=== PATIENT | male | born 1980 | race Caucasian/White ===

== ENCOUNTER 2024-03-10 00:08 | Observation (INO) | payer BC, SELFPAY ==
[2024-03-10] VITALS (18 sets, daily range): BP systolic 128–185; BP diastolic 82–118; PULSE 48–74; RESP 12–18; TEMP 36.6–36.9; O2SAT 95–98; BMI 28.1
--- NOTE | 2024-03-10 00:15 | ECG_ITS ---
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
--- NOTE | 2024-03-10 00:34 | CTR_ITS ---
PROCEDURE INFORMATION: Exam: CTA Head With Contrast, Arteriography Exam date and time: 03/10/2024 12:51 AM Age: 43 years old Clinical indication: Numbness and speech disturbance; Patient HX: PT was in bed and had sudden onset of RT sided numbness with aphasia, now resolved with just residual tingling in RT fingers. Last known well of 2329. ; Additional info: Right sided numbness TECHNIQUE: Imaging protocol: Computed tomographic angiography of the head with contrast. Exam focused on the arteries. 3D rendering (Not supervised by radiologist): MIP and/or 3D reconstructed images were created by the technologist. Radiation optimization: All CT scans at this facility use at least one of these dose optimization techniques: automated exposure control; mA and/or kV adjustment per patient size (includes targeted exams where dose is matched to clinical indication); or iterative reconstruction. Contrast material: OMNI 350; Contrast volume: 100 ml; Contrast route: INTRAVENOUS (IV); COMPARISON: No relevant prior studies available. RADIATION DOSE METRICS: Total DLP (mGy-cm): 1084.82 FINDINGS: ANTERIOR CIRCULATION: Right internal carotid artery: Intracranial segment is patent with no significant stenosis. No aneurysm. Right middle cerebral artery: No occlusion or significant stenosis. No aneurysm. Right anterior cerebral artery: No occlusion or significant stenosis. No aneurysm. Left internal carotid artery: Intracranial segment is patent with no significant stenosis. No aneurysm. Left middle cerebral artery: No occlusion or significant stenosis. No aneurysm. Left anterior cerebral artery: No occlusion or significant stenosis. No aneurysm. POSTERIOR CIRCULATION: Right vertebral artery: No occlusion or significant stenosis. No aneurysm. Left vertebral artery: No occlusion or significant stenosis. No aneurysm. Basilar artery: No occlusion or significant stenosis. No aneurysm. Right posterior cerebral artery: No occlusion or significant stenosis. No aneurysm. Left posterior cerebral artery: No occlusion or significant stenosis. No aneurysm. Brain: No cerebral/cerebellar infarct. No brain parenchymal or extra-axial hemorrhage. Cerebral ventricles: No ventriculomegaly. Bones/joints: Unremarkable. No acute fracture. Soft tissues: Unremarkable. PROCEDURE INFORMATION: Exam: CTA Neck With Contrast Exam date and time: 03/10/2024 12:51 AM Age: 43 years old Clinical indication: Numbness and speech disturbance; Patient HX: PT was in bed and had sudden onset of RT sided numbness with aphasia, now resolved with just residual tingling in RT fingers. Last known well of 2330. ; Additional info: Right sided numbness TECHNIQUE: Imaging protocol: Computed tomographic angiography of the neck with contrast. Exam focused on the cervical segments of the vasculature. 3D rendering (Not supervised by radiologist): MIP and/or 3D reconstructed images were created by the technologist. Radiation optimization: All CT scans at this facility use at least one of these dose optimization techniques: automated exposure control; mA and/or kV adjustment per patient size (includes targeted exams where dose is matched to clinical indication); or iterative reconstruction. Contrast material: OMNI 350; Contrast volume: 100 ml; Contrast route: INTRAVENOUS (IV); COMPARISON: No relevant prior studies available. RADIATION DOSE METRICS: Total DLP (mGy-cm): 1084.82 FINDINGS: Right common carotid artery: No stenosis. No dissection or occlusion. Right internal carotid artery: No stenosis of the extracranial segment. No dissection or occlusion. Right external carotid artery: No occlusion or stenosis of the origin. Left common carotid artery: No stenosis. No dissection or occlusion. Left internal carotid artery: No stenosis of the extracranial segment. No dissection or occlusion. Left external carotid artery: No occlusion or stenosis of the origin. Right vertebral artery: No stenosis. No dissection or occlusion. Left vertebral artery: No stenosis. No dissection or occlusion. Soft tissues: Normal. No significant soft tissue swelling. Bones/joints: No acute fracture. CT/CT angio headneck* [id number] IMPRESSION: 1. No acute infarct or hemorrhage. 2. No large vessel occlusion or stenosis. IMPRESSION: No vascular stenosis, occlusion or dissection. REFERENCES: NASCET CRITERIA. The degree of stenosis in the cervical segment of the internal carotid artery is based on NASCET criteria. Normal is no stenosis. Mild is less than 50% stenosis. Moderate is 50-69% stenosis. Severe is 70% to 99% stenosis. Total occlusion is no detectable patent lumen.
[2024-03-10 00:44] LABS: Basophils % 0.6 %; Eosinophils # 0.2 10^3/uL (0.0-0.8); Eosinophils % 3.9 %; Hematocrit 42.9 % (37-53); Lymphocytes # 2.1 10^3/uL (0.8-4.8); Lymphocytes % 40.3 %; Mean Corpuscular Hemoglobin 29.6 pg (27-33); Mean Corpuscular Volume 86.8 fl (82-101); Mean Platelet Volume 10.6 fL (7.4-10.4); Monocytes # 0.4 10^3/uL (0.2-0.9); Monocytes % 8.5 %; Neutrophils # 2.42 10^3/uL (1.8-7.7); Neutrophils % 46.5 %; Nucleated Red Blood Cells % 0 %; Platelet Count 238 10^3/cmm (157-399); Red Blood Count 4.94 10^6/uL (3.85-5.65); Red Cell Distribution Width 11.9 % (12.1-15.1); White Blood Count 5.19 10^3/uL (3.29-11.43)
[2024-03-10 01:02] LABS: Charge for UA Resulting for Rev
[2024-03-10] MEDS: iohexol 350 mg/mL 500 mL Btl (per mL) IV (01:02)
[2024-03-10 01:05] LABS: Bilirubin Urine Negative (Negative); Blood Urine Negative (Negative); Glucose Urine UA Negative (Normal); Ketones Urine Negative (Negative); Leukocyte Esterase Urine Negative (Negative); Nitrate Urine Negative (Negative); Protein Urine Negative (Negative); Specific Gravity, Urine 1.002 (1.005-1.030); Urine Appearance Clear (CLEAR); Urine Color Yellow (Yellow); Urobilinogen Urine 0.2 mg/dL (Negative)
[2024-03-10 01:07] LABS: INR 0.93 (0.8-1.2); Partial Thromboplastin Time 31.1 SECONDS (23.9-36.7)
[2024-03-10 01:10] LABS: Bacteria Urine None Seen /hpf; Hyaline Casts Urine 0-4 /lpf; RBC Urine 0-2 /hpf (0-2); Squamous Epithelial Cell Urine 0-5 /hpf (0-5); WBC Urine 0-5 /hpf (0-5)
[2024-03-10 01:12] LABS: Amphetamines Screen Urine Negative (Negative); Barbiturates Screen Urine Negative (Negative); Benzodiazepines Screen Urine Negative (Negative); Cocaine Screen Urine Negative (Negative); Opiate Screen Urine Negative (Negative); PCP Screen Urine Negative (Negative); THC Screen Urine Negative (Negative)
[2024-03-10] MEDS: labetalol 5 mg/mL SDV 20mL 10 MG IVP (01:12)
[2024-03-10 01:15] LABS: Alanine Aminotransferase 22 U/L (0-41); Albumin Level 4.4 g/dL (3.5-5.2); Alkaline Phosphatase 60 U/L (40-130); Anion Gap 14.7 (5-19); Aspartate Amino Transferase 19 U/L (0-40); Blood Urea Nitrogen 17 mg/dL (6-20); Carbon Dioxide 26 mmol/L (22-29); Chloride 106 mmol/L (98-107); Creatinine Clr Calc Pharmacy 138.4147; Globulin 2.8 g/dL (1.3-4.6); Glomerular Filtration Rate 92.5 mL/min (90-130); Glucose 123 mg/dL (65-115); Osmolality Calculated 299 mOsm/kg (285-295); Potassium 3.7 mmol/L (3.5-5.1); Sodium 143 mmol/L (136-145); Total Bilirubin 0.2 mg/dL (0.15-1.2); Total Protein 7.2 g/dL (6.6-8.7)
[2024-03-10 01:16] LABS: Alcohol Level < 10 mg/dL (0-10)
--- NOTE | 2024-03-10 01:34 | ED_ITS ---
HPI - Neuro Symptoms/Deficit 2 General: Chief Complaint: Neuro Symptoms/Deficit Stated Complaint: Right side Numbness Time Seen by Provider: 03/10/24 00:33 History of Present Illness: 43-year-old male patient with no prior s ignificant medical history. Presents with a right upper extremity paresthesia. Evidently, around 11 PM, he and his are in bed. He sat up suddenly, and tried to speak. His says the speech was garbled. He was evidently trying to say that he felt funny. He had numbness he says to the right side of his body from his forehead to his right foot. No headache, no vision changes. Within a minute, symptoms were improved, save a small area of [id number] type sensation to his right thumb and index finger. He is not weak. Still no change in vision, no dizziness, no dysarthria or aphasia. No prior history of seizure. No prior history of migraine headache. Related Data Allergies Allergy/AdvReac Type Severity Reaction Status Date / Time No Known Allergies Allergy Verified 03/10/24 00:34 NIH stroke score 2 NIHSS: Level Of Consciousness - 1a: 0 Level Of Consciousness Questions - 1b: Both Correct Level Of Consciousness Commands - 1c: Both Correct Best Gaze - 2: Normal Visual Kendall - 3: No Visual Loss Facial Palsy - 4: N ormal Motor Arm Right - 5: No Drift Motor Arm Left - 5: No Drift Motor Leg Right - 6: No Drift Motor Leg Left - 6: No Drift Limb Ataxia - 7: A bsent Sensory - 8: Mild To Moderate Loss Best Language - 9: No Aphasia Dysarthia - 10: Normal Extinction And Inattention - 11: 0 Score: Total Score: 1 Physical Exam 2 Const: GENERAL APPEARANCE: cooperative and anxious; not ill appearing and not frail appearing HENMT: COMMON NORMALS: normocephalic, atraumatic and Normal external nose present HEAD & SCALP: normocephalic and atraumatic FACE & SINUS: normal facial exam and face symmetric NOSE: Normal external nose present Eye: COMMON NORMALS: Equal, round and reactive pupils present and EOMs intact bilaterally PUPIL: Yes Equal, round and reactive pupils present Neck/C-Spine: GENERAL: Yes trachea midline Chest: CHEST: Yes Symmetrical chest wall rise Resp: COMMON NORMALS: normal respiratory effort, No retractions, No use of accessory muscles and clear to auscultation bilaterally AUSCULTATION: clear to auscultation bilaterally Cardio: COMMON NORMALS: regular rate and regular rhythm RATE: regular rate RHYTHM: regular rhythm GI: COMMON NORMALS: Normal to inspection, nondistended, normoactive bowel sounds present Extremity: COMMON NORMALS: no pedal edema Neuro: IZABELLA COMA SCALE: document GCS findings Izabella coma scale eye opening: Spontaneous Izabella coma scale verbal response: Orientated [place] coma scale motor response: Obey commands Izabella coma scale total score: 15 S ENSORY EXAM: Yes extremities (intact) Psych: COMMON NORMALS: speech normal SPEECH: Yes normal speech Skin: COMMON NORMALS: no rashes or lesions noted GENERAL SKIN EXAM: no rashes or lesions noted Course 2 Vital Signs: Vital signs: Vital Signs Temperature 98.5 F 03/10/24 00:28 Pulse Rate 64 03/10/24 02:58 Respiratory Rate 18 03/10/24 02:58 Blood Pressure 138/93 03/10/24 02:58 Pulse Oximetry 96 03/10/24 02:58 Oxygen Delivery Me thod Room Air 03/10/24 00:28 MDM - Neuro Symptoms/Deficit Medical Decision Making Nearly fully resolved neurological symptoms. Patient only has slight paresthesia to the first and second digit on the right upper extremity. Other sensation is intact. stroke scale is a 1. Negative urine drug screen. Negative alcohol. Laboratories essentially normal. Head CT is negative. CT angio of the head and neck is pending. CT angio of the head and neck is read as normal. Patient still has some paresthesias to the right upper extremity. Patient was quite hypertensive on presentation. 210s over 1 teens. He was given 1 dose of 10 mg of labetalol, with some improvement. Blood pressure has improved significantly over time. Differential is hypertensive urgency versus TIA versus small stroke versus partial seizure. With a score of 1, thrombolytics were not an option. He is not a candidate for thrombectomy given his clean CTA. He will be observed. Will continue workup including echocardiogram. Hospitalist is seeing the patient Lab Data 03/10/24 00:40 03/10/24 00:40 Radiology Impressions Head/Neck CTA 03/10/24 00:34 IMPRESSION: 1. No acute infarct or hemorrhage. 2. No large vessel occlusion or stenosis. IMPRESSION: No vascular stenosis, occlusion or dissection. REFERENCES: NASCET CRITERIA. The degree of stenosis in the cervical segment of the internal carotid artery is based on NASCET criteria. Normal is no stenosis. Mild is less than 50% stenosis. Moderate is 50-69% stenosis. Severe is 70% to 99% stenosis. Total occlusion is no detectable patent lumen. Laboratory Results WBC 5.19 10^3/uL (3.29-11.43) 03/10/24 00:40 RBC 4.94 10^6/uL (3.85-5.65) 03/10/24 00:40 Hgb 14.60 g/dL (11.27-16.99) 03/10/24 00:40 Hct 42.9 % (37-53) 03/10/24 00:40 MCV 86.8 fl (82-101) 03/10/24 00:40 MCH 29.6 pg (27-33) 03/10/24 00:40 MCHC 34.0 g/dL (30-55) 03/10/24 00:40 RDW 11.9 % (12.1-15.1) L 03/10/24 00:40 Plt Count 238 10^3/cmm (157-399) 03/10/24 00:40 MPV 10.6 fL (7.4-10.4) H 03/10/24 00:40 Neut % (Auto) 46.5 % 03/10/24 00:40 Lymph % (Auto) 40.3 % 03/10/24 00:40 Cannon % (Auto) 8.5 % 03/10/24 00:40 Eos % (Auto) 3.9 % 03/10/24 00:40 Baso % (Auto) 0.6 % 03/10/24 00:40 Neut # (Auto) 2.42 10^3/uL (1.8-7.7) 03/10/24 00:40 Lymph # (Auto) 2.1 10^3/uL (0.8-4.8) 03/10/24 00:40 Cannon # (Auto) 0.4 10^3/uL (0.2-0.9) 03/10/24 00:40 Eos # (Auto) 0.2 10^3/uL (0.0-0.8) 03/10/24 00:40 Baso # (Auto) 0.0 10^3/uL (0.0-0.1) 03/10/24 00:40 Nucleated RBC % (auto) 0 % 03/10/24 00:40 Nucleated RBCs # 0.0 /100WBC 03/10/24 00:40 PT 12.70 SECONDS (12.1-14.9) 03/10/24 00:40 INR 0.93 (0.8-1.2) 03/10/24 00:40 APTT 31.1 SECONDS (23.9-36.7) 03/10/24 00:40 Sodium 143 mmol/L (136-145) 03/10/24 00:40 Potassium 3.7 mmol/L (3.5-5.1) 03/10/24 00:40 Chloride 106 mmol/L (98-107) 03/10/24 00:40 Carbon Dioxide 26 mmol/L (22-29) 03/10/24 00:40 Anion Gap 14.7 (5-19) 03/10/24 00:40 BUN 17 mg/dL (6-20) 03/10/24 00:40 Creatinine 0.9 mg/dL (0.7-1.2) 03/10/24 00:40 GFR Calculation 92.5 mL/min (90-130) 03/10/24 00:40 Glucose 123 mg/dL (65-115) H 03/10/24 00:40 Calculated Osmolality 299 mOsm/kg (285-295) H 03/10/24 00:40 Calcium 9.0 mg/dL (8.5-10.5) 03/10/24 00:40 Total Bilirubin 0.2 mg/dL (0.15-1.2) 03/10/24 00:40 AST 19 U/L (0-40) 03/10/24 00:40 ALT 22 U/L (0-41) 03/10/24 00:40 Alkaline Phosphatase 60 U/L (40-130) 03/10/24 00:40 Total Protein 7.2 g/dL (6.6-8.7) 03/10/24 00:40 Albumin 4.4 g/dL (3.5-5.2) 03/10/24 00:40 Globulin 2.8 g/dL (1.3-4.6) 03/10/24 00:40 Urine Color Yellow (Yellow) 03/10/24 00:42 Urine Appearance Clear (CLEAR) 03/10/24 00:42 Urine pH 6.0 (5-7) 03/10/24 00:42 Ur Specific [place] 1.002 (1.005-1.030) L 03/10/24 00:42 Urine Protein Negative (Negative) 03/10/24 00:42 Urine Glucose (UA) Negative (Normal) 03/10/24 00:42 Urine Ketones Negative (Negative) 03/10/24 00:42 Urine Blood Negative (Negative) 03/10/24 00:42 Urine Nitrate Negative (Negative) 03/10/24 00:42 Urine Bilirubin Negative (Negative) 03/10/24 00:42 Urine Urobilinogen 0.2 mg/dL (Negative) 03/10/24 00:42 Ur Leukocyte Esterase Negative (Negative) 03/10/24 00:42 Urine RBC 0-2 /hpf (0-2) 03/10/24 00:42 Urine WBC 0-5 /hpf (0-5) 03/10/24 00:42 Ur Squamous Epith Cells 0-5 /hpf (0-5) 03/10/24 00:42 Amorphous Sediment Not Reportable 03/10/24 00:42 Urine Bacteria None seen /hpf (NONE) 03/10/24 00:42 Hyaline Casts 0-4 /lpf H 03/10/24 00:42 Urine Opiates Screen Negative ng/mL (Negative) 03/10/24 00:42 Ur Barbiturates Screen Negative ng/mL (Negative) 03/10/24 00:42 Ur Phencyclidine Scrn Negative ng/mL (Negative) 03/10/24 00:42 Ur Amphetamines Screen Negative ng/mL (Negative) 03/10/24 00:42 U Benzodiazepines Scrn Negative ng/mL (Negative) 03/10/24 00:42 Urine Cocaine Screen Negative ng/mL (Negative) 03/10/24 00:42 U Marijuana (THC) Screen Negative ng/mL (Negative) 03/10/24 00:42 Ethyl Alcohol < 10 mg/dL (0-10) 03/10/24 00:40 All radiology interpretation(s) finalized by discharge Discharge Plan Discharge Patient Disposition: Placed in Observation Clinical Impression: Transient cerebral ischemia Condition: Stable Coding Level of Care Code ED Universal Grinder Operator for Salina Quiles
--- NOTE | 2024-03-10 03:09 | USCV_ITS ---
Domo Champagne Age: 43 Gender: M : 1980 Exam Date: 03/10/2024 14:07 Ordering Phys: Mich Del Valel MD Technologist: Hossein Jaquez [place] [facility] [place]: tia BP: 150 / 99 HR: Rhythm: Sinus Technical Quality: Adequate MEASUREMENTS (Male / Female) Normal Values 2D ECHO LV Diastolic Diameter PLAX 4.3 cm 4.2 - 5.9 / 3.9 - 5.3 cm IVS Diastolic Thickness 1.3 cm 0.6 - 1.0 / 0.6 - 0.9 cm IVS Systolic Thickness 1.7 cm LVPW Diastolic Thickness 1.8 cm 0.6 - 1.0 / 0.6 - 0.9 cm LVPW Systolic Thickness 2.7 cm LVOT Diameter 2.1 cm LV Ejection Fraction 2D Teich 57.7 % LV Ejection Fraction MOD 4C 58.3 % LV Ejection Fraction MOD 2C 66.2 % LV Ejection Fraction 2C AL 67.0 % LA Diameter 3.2 cm RA Systolic Volume 4C AL 32.8 ml RA Systolic Volume 4C MOD 32.0 ml LA Sys Volume AL 44.7 cm cubed LA Sys Volume Index AL 19.1 cm cubed/m squared Aorta at Sinotubular Diameter 2.3 cm IVC Diameter 2.0 cm M-MODE LA Ao Ratio MM 1.0 AV Cusp Separation MM 2.1 cm FINDINGS Left Ventricle Normal left ventricular size, systolic function and wall thickness, with no regional wall motion abnormalities. Left ventricle ejection fraction is 60%. Normal diastolic filling pattern. Right Ventricle The right ventricle is normal in size and function. Right Atrium The right atrium is normal in size. There appeared to be no PFO as agitated saline did not show interatrial shunt Left Atrium The left atrium is normal in size. Mitral Valve Structurally normal mitral valve without significant stenosis or prolapse. There is no mitral regurgitation. Aortic Valve Structurally normal aortic valve without significant sclerosis or stenosis. There is no aortic regurgitation. Tricuspid Valve Structurally normal tricuspid valve without significant stenosis or regurgitation. Pulmonary artery systolic pressure is normal. Pulmonic Valve Structurally normal pulmonic valve without significant stenosis. There is no pulmonic regurgitation. Pericardium Normal pericardium without effusion. Aorta Normal ascending aorta dimension. IVC The inferior vena cava appears normal. CONCLUSIONS 1-Normal left ventricular size, systolic function and wall thickness, with no regional wall motion abnormalities. Left ventricle ejection fraction is 60%. Normal diastolic filling pattern. 2-The right atrium is normal in size. There appeared to be no PFO as agitated saline did not show interatrial shunt 3-There is no pericardial effusion. 4-No significant valve abnormalities. 5-Right atrial pressure is around 5 mm of mercury. Alfreda Morales MD (Electronically Signed) Final Date: 10 March 2024 17:24 S
--- NOTE | 2024-03-10 03:12 | ECG_ITS ---
[facility] Test Date: 2024-03-10 Pat Name: Domo Champagne Department: Room: Gender: Male Case Investigator: : 1980 Requested By: Mich Del Valle Order Number: [id number] Nick MD: JACOB GAITAN Measurements Intervals [place] Rate: 57 P: 55 [place]: 177 QRS: 29 QRSD: 90 T: 44 QT: 404 QTc: 395 Interpretive Statements SINUS BRADYCARDIA ST ELEVATION, PROBABLY EARLY REPOLARIZATION [ST ELEVATION WITH NORMALLY INFLECTED T-WAVE] Compared to ECG 03/10/2024 00:19:53 ST (T wave) deviation now present Early repolarization now present Sinus rhythm no longer present Ventricular premature complex(es) no longer present Electronically Signed On 03-10-2024 18:50:48 CDT by JACOB GAITAN [id number]
--- NOTE | 2024-03-10 03:12 | P.HP_ITS ---
Providers/Chief Complaint 2 Chief Complaint: Right side Numbness History of Present Illness Domo Champagne is a 43 year old male with no significant past medical history, who presents [facility] due to right sided numbness, right-leg weakness, slurring over his words,. Patient tells me that at about 11 pM, he was playing on his phone, he was in bed with his , when he suddenly noticed that he had numbness on the right side of his body, from his right side of his forehead down to his right foot, he did not remember if he had right hand weakness but does report right leg weakness, reported weakness in his right leg, also had garbled speech, symptoms lasted about 30 seconds, and transiently resolved, he actually was brought into the emergency room by his , he walked into the emergency room, denies any lightheadedness, no dizziness, no unsteadiness, no current focal weakness, no facial droop, no slurring of his words, he did report to the ER provider they had some focal paresthesias around his right thumb and index finger. His NIH stroke scale was 1 calculated by ER provider, for me his NIH stroke scale is 0. Denies any facial droop, no slurring of his words, no visual deficits, he was able to walk in to the emergency room, no unsteadiness, of his gait, [id number]-[id number] is normal, no focal weakness, no focal paresthesias, no dysarthria, no word finding difficulty no migraines, no seizures. The patient does tell me that he has been dealing with elevated blood pressure and was supposed to see his primary care provider about possibly starting blood pressure medications, no history of atrial fibrillation Review of Systems 2 Const: Denies: fatigue or malaise Card: Denies: chest pain Resp: Denies: dyspnea GI: Denies: abdominal pain Neuro: Denies: headache(s), dizziness, confusion, difficulty communicating thoughts or seizure-like activity Psych: Denies: anxiety Medications/Allergies Allergies Allergy/AdvReac Type Severity Reaction Status Date / Time No Known Allergies Allergy Verified 03/10/24 00:34 PFSH Acute 2 PFSH: Medical History (Updated 03/10/24 @ 03:17 by Mich Del Valle MD) No pertinent past medical history Surgical History (Updated 03/10/24 @ 03:17 by Mich Del Valle MD) No pertinent past surgical history Family History Mother Hypertension Social History (Updated 03/10/24 @ 03:18 by Mich Del Valle MD) Smoking and tobacco/nicotine status: never used tobacco/nicotine Alcohol intake: never Substance/Drug Use: never Vitals/I&O/Wt Last Vital Signs Temp 98.5 F 03/10/24 00:28 Pulse 64 03/10/24 02:58 Resp 18 03/10/24 02:58 BP 138/93 03/10/24 02:58 Pulse Ox 96 03/10/24 02:58 O2 Del Method Room Air 03/10/24 00:28 Weight last 48 hrs Weight 102.058 kg Physical Exam 2 Const: COMMON NORMALS: no acute distress and patient oriented x3 HENMT: COMMON NORMALS: normocephalic HEAD & SCALP: normocephalic Eye: COMMON NORMALS: Equal, round and reactive pupils present and EOMs intact bilaterally Neck/C-Spine: COMMON NORMALS: no JVD Lymph: LYMPHATIC: no lymphadenopathy noted Resp: COMMON NORMALS: normal respiratory effort, No retractions, No use of accessory muscles and clear to auscultation bilaterally AUSCULTATION: clear to auscultation bilaterally Cardio: COMMON NORMALS: no JVD, regular rate, regular rhythm, S1 normal heart sound present and S2 normal heart sound present RATE: regular rate RHYTHM: regular rhythm HEART SOUNDS: S1 normal heart sound present and S2 normal heart sound present GI: COMMON NORMALS: Normal to inspection, nondistended, normoactive bowel sounds present, Soft to palpation and non-tender PALPATION: Yes No hepatosplenomegaly present Extremity: COMMON NORMALS: no calf tenderness and no pedal edema Neuro: COMMON NORMALS: patient oriented x3, CN's II-XII intact bilaterally, moves all extremities, no focal motor deficits and no sensory deficits noted Psych: COMMON NORMALS: mental status grossly normal Data 03/10/24 00:40 03/10/24 00:40 A&P Assessment and plan (1) Transient cerebral ischemia: Plan TIA -Currently alert oriented x 3, following all commands, no focal logic deficits, no slurring of his words, no word finding difficulty, no visual deficits, [id number]-[id number]-[id number] normal bilaterally, was able to walk in to the emergency room -CT head within normal limits, CT head and neck no acute findings -Was not deemed a tPA candidate by ER provider, NIH stroke scale 1 Plan -Aspirin -Statin -IV fluids -Neurochecks -NIH stroke scale -Does have undiagnosed hypertension, blood pressure on admission was 185/108, was given labetalol, currently blood pressure is 150/110 ? Start Norvasc 10 mg daily ? Telemetry monitoring ? Serial EKGs, serial troponins, telemetry monitoring ? Echocardiogram bubble study ? Will have patient follow-up with neurology as outpatient ? Full code ? Lovenox for DVT prophylaxis Attestations 2 Medical Necessity Statement*: Patient requires hospitalization, outpatient with observation, for TIA Diagnoses Transient cerebral ischemia G45.9
[2024-03-10] MEDS: sodium chloride 0.9% 1,000 ML 75 ML IV (03:55)
[2024-03-10] MEDS: aspirin 81 mg EC Tablet PO (04:00)
[2024-03-10] MEDS: atorvastatin 40 mg Tablet PO ×2 (04:00→20:37)
[2024-03-10] MEDS: amlodipine 10 mg Tablet PO (04:00)
[2024-03-10 04:01] LABS: Estmated Average Glucose 100; Hemoglobin A1C 5.1 % (4.0-6.0); Troponin(5th) Baseline < 6 ng/L (0-15)
[2024-03-10] MEDS: pantoprazole 40 mg SDV IVP (04:01)
[2024-03-10] MEDS: enoxaparin 40 mg/0.4 mL Syringe SUBCUT (04:02)
[2024-03-10 04:08] LABS: Chol HDL Ratio 4.15 mg/dL (1.0-5.00); Cholesterol 199 mg/dL (0-200); HDL Cholesterol 48 mg/dL (60-100); LDL Cholesterol Calculated 108 mg/dL (50-129); LDL HDL Ratio 2.25 RATIO (0.00-3.22); NT Pro B Type Natriuretic Pept < 36 pg/mL (0-125); Thyroid Stimulating Hormone 4.75 uIU/mL (0.27-4.20); Triglycerides 215 mg/dL (0-150)
--- NOTE | 2024-03-10 05:12 | ECG_ITS ---
[facility] Test Date: 2024-03-10 Pat Name: Domo Champagne Department: Room: Gender: Male Health Service Coordinator: : 1980 Requested By: Mich Del Valle Order Number: [id number] Reading MD: JACOB GAITAN Measurements Intervals [place] Rate: 51 P: 48 DE: 177 QRS: 38 QRSD: 89 T: 41 QT: 427 QTc: 395 Interpretive Statements SINUS BRADYCARDIA EARLY REPOLARIZATION [ST ELEVATION WITH NORMALLY INFLECTED T-WAVE] Compared to ECG 03/10/2024 03:40:09 ST (T wave) deviation no longer present Electronically Signed On 03-10-2024 18:56:54 CDT by JACOB GAITAN [id number]
[2024-03-10 07:06] LABS: Troponin 5 6HR Delta 0.00001 ng/L (0-12)
--- NOTE | 2024-03-10 09:12 | ECG_ITS ---
[facility] Test Date: 2024-03-10 Pat Name: Domo Champagne Department: Room: 253 Gender: Male Shop Supervisor: : 1980 Requested By: Mich Del Valle Order Number: [id number] Reading MD: JACOB GAITAN Measurements Intervals [place] Rate: 62 P: 55 OR: 181 QRS: 42 QRSD: 89 T: 44 QT: 400 QTc: 408 Interpretive Statements SINUS RHYTHM ST ELEVATION, PROBABLY EARLY REPOLARIZATION [ST ELEVATION WITH NORMALLY INFLECTED T-WAVE] Compared to ECG 03/10/2024 05:18:33 ST (T wave) deviation now present Sinus bradycardia no longer present Electronically Signed On 03-10-2024 18:55:45 CDT by JACOB GAITAN [id number]
[2024-03-10 10:39] LABS: Free T4 Free Thyroxine 1.17 ng/dL (0.82-1.77); T3 Free 4.4 PG/ML (2.0-4.4)
[2024-03-10 10:55] LABS: Iron 47 ug/dL (59-158); Percent Saturation 18.3 % (20-50); Total Iron Binding Capacity 256 mcg/dl; Unsaturated Iron Binding 209 ug/dL (112-347)
--- NOTE | 2024-03-10 11:01 | P.MISC_ITS ---
Miscellaneous Note Purpose of Documentation: Cross coverage Note: Admitted overnight. H&P and labs appreciated. . On examination patient and comfortabl y in bed. Denies any further weakness of arms or legs. Denies any further numbness on the right side of the body. Appreciate CT head and neck. PT/OT evaluation. Goal blood pressure less than 140/90 MAG. Continue with aspirin, statin, amlodipine. Uptitrate as for goal blood pressure. Awaiting echocardiogram.
[2024-03-10 11:11] LABS: Vitamin B12 398 pg/mL (232-1245)
[2024-03-10] MEDS: acetaminophen 325 mg Tablet 650 MG PO (16:42)
[2024-03-11] MEDS: pantoprazole 40 mg SDV IVP (03:45)
[2024-03-11] MEDS: amlodipine 10 mg Tablet PO (03:45)
[2024-03-11] MEDS: enoxaparin 40 mg/0.4 mL Syringe SUBCUT (03:45)
[2024-03-11 04:00] VITALS: BP 127/88; PULSE 59; RESP 17; TEMP 36.9; O2SAT 96
[2024-03-11 04:35] LABS: Basophils % 0.6 %; Eosinophils # 0.2 10^3/uL (0.0-0.8); Eosinophils % 3.1 %; Hematocrit 43.1 % (37-53); Lymphocytes # 1.8 10^3/uL (0.8-4.8); Lymphocytes % 33.6 %; Mean Corpuscular HGB Conc 34.3 g/dL (30-55); Mean Corpuscular Hemoglobin 30.1 pg (27-33); Mean Corpuscular Volume 87.6 fl (82-101); Mean Platelet Volume 10.9 fL (7.4-10.4); Monocytes # 0.4 10^3/uL (0.2-0.9); Monocytes % 7.7 %; Neutrophils # 2.86 10^3/uL (1.8-7.7); Neutrophils % 54.8 %; Nucleated Red Blood Cells % 0 %; Platelet Count 224 10^3/cmm (157-399); Red Blood Count 4.92 10^6/uL (3.85-5.65); Red Cell Distribution Width 12.1 % (12.1-15.1); White Blood Count 5.21 10^3/uL (3.29-11.43)
[2024-03-11 04:58] LABS: Alanine Aminotransferase 20 U/L (0-41); Albumin Level 4.3 g/dL (3.5-5.2); Alkaline Phosphatase 52 U/L (40-130); Anion Gap 14.7 (5-19); Aspartate Amino Transferase 15 U/L (0-40); Blood Urea Nitrogen 15 mg/dL (6-20); Carbon Dioxide 26 mmol/L (22-29); Chloride 107 mmol/L (98-107); Creatinine Clr Calc Pharmacy 151.0554; Globulin 2.4 g/dL (1.3-4.6); Glucose 100 mg/dL (65-115); Osmolality Calculated 299 mOsm/kg (285-295); Potassium 3.7 mmol/L (3.5-5.1); Sodium 144 mmol/L (136-145); Total Bilirubin 0.3 mg/dL (0.15-1.2); Total Protein 6.7 g/dL (6.6-8.7)
[2024-03-11 05:10] LABS: Folate Level 7.3 ng/mL (4.5-32.2)
[2024-03-11 05:15] LABS: Magnesium 2.1 mg/dL (1.7-2.3)
[2024-03-11 07:45] VITALS: BP 131/85; PULSE 61; RESP 18; TEMP 36.6; O2SAT 96
[2024-03-11] MEDS: aspirin 81 mg EC Tablet PO (08:50)
--- NOTE | 2024-03-11 10:02 | PC.CHAP ---
Pastoral Care Encounter/Spiritual Assessment Type of Contact [] Declined central office trouble shooter visit [] Patient/Family/Request visit [] Outpatient visit [] Follow-up visit [] Physician referral [] Code/Alert [x] Routine visit [] Staff referral [] Actively dying [] Patient sleeping [] Family support [] [] Out of room [] Palliative care [] [] Receiving care in room [] Pre-surgical visit [] Trauma [] Long length of stay [] ICU visit [] Other: Relational/Emotional Strength [] Patient feels connected with others/family/visitors/staff [] Distress [] Loneliness/isolation [] Abandonment Spirituality of Patient [x] Person of Lisa [] Attends Roman Catholic of their Lisa [x] Believes in Prayer [] Reads Bible or Mandaen materials [] There are Spiritual issues to be addressed [place]inger Interventions [x] Prayer [x] Active listening [] Non-anxious presence [] Spiritual/emotional support [] Crisis/trauma care [] Spiritual counseling [] Bereavement support [] Provided bereavement packet [x] Provided Bible/devotional materials [] Provided toy/stuffed animal, coloring book to patient or family member [] Provided Communion [] Anointing/[place] [] Salvation [x] Completed spiritual assessment [] Other: Impact on Illness or Injury [] Angry [] Fearful [] Anxious [] Often cries [] Exhaustion [] Unable to work [] Unable to attend anabaptist [] Unable to walk/stand [] Unable to read [] Unable to drive [] Unable to eat/drink [] Unable to sleep [] Unable to be with family [] Patient intubated [] Other: Summary Time spent with patient 5 min
--- NOTE | 2024-03-11 12:11 | P.DS_ITS ---
Discharge Providers Date of Admission: 03/10/24 03:09 Date of Discharge: March 11, 2024 Attending Provider at Admission: Mich Del Valle MD Attending Provider at Discharge: Tom Nuñez Diagnoses at Discharge Discharge Diagnosis (1) Transient cerebral ischemia: Status: Acute Reason for Visit Reason for Visit: Right side Numbness Hospital Course Hospital Course Pleasant 43-year-old gentleman was brought in accompanied by his after he noticed the right side of his body having numbness, weakness, as well as having difficulty speaking. He also reports having some tingling of his scalp. The major symptoms lasted about 30 seconds, resolving spontaneously, he did have some residual numbness around the first 2 digits of his right hand lasting several hours afterwards. He gets intermittent headaches, but did not have any headache last night apart from tingling of his scalp. Denies vision changes. His blood pressure was very elevated on presentation, reported to 110s systolic over 1 teens. He is not treated for hypertension, although has had that has had elevated blood pressures in the past. He was assessed for possible stroke on presentation, CT head was obtained and unremarkable, CT angiogram head and neck was obtained and without any significant stenosis. Symptoms are rapidly improving. He was not a candidate for tPA or thrombectomy. Was additionally admitted, started on amlodipine 10 mg after initially receiving labetalol in ER. Heart rates did come down into the mid 50s. Blood pressure subsequently controlled with amlodipine, this morning 127/88, 131/85. Echocardiogram obtained with normal ejection fraction, normal diastolic filling pattern. No PFO. No effusion. EKGs without atrial fibrillation. ST elevation likely early repolarization. Normal troponin series. He is feeling well, without recurrence of symptoms. Feels ready to return home. Discussed with him continued blood pressure monitoring and optimization of control. Continuing amlodipine, depending on his blood pressures this could be de-escalated versus escalated with addition of another medication if blood pressure still not controlled. Continue target blood pressure 120/80, he knows to seek medical attention in case of blood pressure rising and not responding to medication. He is making some lifestyle medications with reducing sodium intake as well. He has history of headaches, although did not have a headache, visual symptoms to suggest hemiplegic migraine. He and his know to seek medical attention in case of recurrent or new concerning symptoms. Physical Exam Narrative: Accompanied by his . Const: COMMON NORMALS: patient oriented x3 and alert GENERAL APPEARANCE: cooperative ORIENTATION/CONSCIOUSNESS: Yes awake HENMT: COMMON NORMALS: oropharynx normal Neck/C-Spine: COMMON NORMALS: no JVD Resp: COMMON NORMALS: normal respiratory effort and clear to auscultation diana aterally AUSCULTATION: clear to auscultation bilaterally Cardio: COMMON NORMALS: no JVD, regular rhythm, S1 normal heart sound present, S2 normal heart sound present and No murmurs present (Cardio) RHYTHM: regular rhythm HEART SOUNDS: S1 normal heart sound present and S2 normal heart sound present GI: COMMON NORMALS: Normal to inspection, nondistended, normoactive bowel sounds present, Soft to palpation and non-tender PALPATION: Yes Soft to palpation Extremity: COMMON NORMALS: no joint enlargement and no pedal edema Neuro: COMMON NORMALS: patient oriented x3 and moves all extremities SENSORIUM/ORIENTATION: Yes alert OTHER: He is awake and alert, no difficulties following commands. No facial droop. No slurred speech or aphasia. No difficulty tracking horizontally. No difficulty with FNF. Visual mitchell full to confrontation. No visual extinction. Sensory exam symmetrical, no sensory extinction. No upper or lower extremity drift. Skin: COMMON NORMALS: no rashes or lesions noted GENERAL SKIN EXAM: no rashes or lesions noted Discharge Data Studies Completed and Pending Completed Studies During Hospitalization Category Date Time Status CT angio headneck* [id number] Stat Cat Scan 03/10/24 00:34 Completed CV. echo lmt wo/w bubble [id number] Stat Ultrasound 03/10/24 03:09 Completed Pending at discharge Category Date Time Status MAG [Magnesium] AM LABS Lab 03/12/24 04:00 Ordered MAG [Magnesium] AM LABS Lab 03/13/24 04:00 Ordered Radiology Impressions Head/Neck CTA 03/10/24 00:34 IMPRESSION: 1. No acute infarct or hemorrhage. 2. No large vessel occlusion or stenosis. IMPRESSION: No vascular stenosis, occlusion or dissection. REFERENCES: NASCET CRITERIA. The degree of stenosis in the cervical segment of the internal carotid artery is based on NASCET criteria. Normal is no stenosis. Mild is less than 50% stenosis. Moderate is 50-69% stenosis. Severe is 70% to 99% stenosis. Total occlusion is no detectable patent lumen. Laboratory Results WBC 5.21 10^3/uL (3.29-11.43) 03/11/24 03:58 RBC 4.92 10^6/uL (3.85-5.65) 03/11/24 03:58 Hgb 14.80 g/dL (11.27-16.99) 03/11/24 03:58 Hct 43.1 % (37-53) 03/11/24 03:58 MCV 87.6 fl (82-101) 03/11/24 03:58 MCH 30.1 pg (27-33) 03/11/24 03:58 MCHC 34.3 g/dL (30-55) 03/11/24 03:58 RDW 12.1 % (12.1-15.1) 03/11/24 03:58 Plt Count 224 10^3/cmm (157-399) 03/11/24 03:58 MPV 10.9 fL (7.4-10.4) H 03/11/24 03:58 Neut % (Auto) 54.8 % 03/11/24 03:58 Lymph % (Auto) 33.6 % 03/11/24 03:58 [place] % (Auto) 7.7 % 03/11/24 03:58 Eos % (Auto) 3.1 % 03/11/24 03:58 Baso % (Auto) 0.6 % 03/11/24 03:58 Neut # (Auto) 2.86 10^3/uL (1.8-7.7) 03/11/24 03:58 Lymph # (Auto) 1.8 10^3/uL (0.8-4.8) 03/11/24 03:58 [place] # (Auto) 0.4 10^3/uL (0.2-0.9) 03/11/24 03:58 Eos # (Auto) 0.2 10^3/uL (0.0-0.8) 03/11/24 03:58 Baso # (Auto) 0.0 10^3/uL (0.0-0.1) 03/11/24 03:58 Nucleated RBC % (auto) 0 % 03/11/24 03:58 Nucleated RBCs # 0.0 /100WBC 03/11/24 03:58 PT 12.70 SECONDS (12.1-14.9) 03/10/24 00:40 INR 0.93 (0.8-1.2) 03/10/24 00:40 APTT 31.1 SECONDS (23.9-36.7) 03/10/24 00:40 Sodium 144 mmol/L (136-145) 03/11/24 03:58 Potassium 3.7 mmol/L (3.5-5.1) 03/11/24 03:58 Chloride 107 mmol/L (98-107) 03/11/24 03:58 Carbon Dioxide 26 mmol/L (22-29) 03/11/24 03:58 Anion Gap 14.7 (5-19) 03/11/24 03:58 BUN 15 mg/dL (6-20) 03/11/24 03:58 Creatinine 0.8 mg/dL (0.7-1.2) 03/11/24 03:58 GFR Calculation 106.0 mL/min (90-130) 03/11/24 03:58 Glucose 100 mg/dL (65-115) 03/11/24 03:58 Estimat Average Glucose 100 03/10/24 00:40 Hemoglobin A1c 5.1 % (4.0-6.0) 03/10/24 00:40 Calculated Osmolality 299 mOsm/kg (285-295) H 03/11/24 03:58 Calcium 9.0 mg/dL (8.5-10.5) 03/11/24 03:58 Magnesium 2.1 mg/dL (1.7-2.3) 03/11/24 03:58 Iron 47 ug/dL (59-158) L 03/10/24 00:40 TIBC 256 mcg/dl 03/10/24 00:40 % Saturation 18.3 % (20-50) L 03/10/24 00:40 Unsat Iron Binding 209 ug/dL (112-347) 03/10/24 00:40 Total Bilirubin 0.3 mg/dL (0.15-1.2) 03/11/24 03:58 AST 15 U/L (0-40) 03/11/24 03:58 ALT 20 U/L (0-41) 03/11/24 03:58 Alkaline Phosphatase 52 U/L (40-130) 03/11/24 03:58 Troponin T Baseline < 6 ng/L (0-15) 03/10/24 00:40 Troponin T Hi Sens 6Hr 6.00 ng/L (0-15) 03/10/24 06:41 Troponin T Hi Sens 6Hr Delta 0.35568 ng/L (0-12) 03/10/24 06:41 NT-Pro-B Natriuret Pep < 36 pg/mL (0-125) 03/10/24 00:40 Total Protein 6.7 g/dL (6.6-8.7) 03/11/24 03:58 Albumin 4.3 g/dL (3.5-5.2) 03/11/24 03:58 Globulin 2.4 g/dL (1.3-4.6) 03/11/24 03:58 Triglycerides 215 mg/dL (0-150) H 03/10/24 00:40 Cholesterol 199 mg/dL (0-200) 03/10/24 00:40 LDL Cholesterol, Calc 108 mg/dL (50-129) 03/10/24 00:40 HDL Cholesterol 48 mg/dL (60-100) L 03/10/24 00:40 LDL/HDL Ratio 2.25 RATIO (0.00-3.22) 03/10/24 00:40 Cholesterol/HDL Ratio 4.15 mg/dL (1.0-5.00) 03/10/24 00:40 Vitamin B12 398 pg/mL (232-1245) 03/10/24 00:40 Folate 7.3 ng/mL (4.5-32.2) 03/11/24 03:58 TSH 4.75 uIU/mL (0.27-4.20) H 03/10/24 00:40 Free T4 1.17 ng/dL (0.82-1.77) 03/10/24 00:40 Free T3 4.4 PG/ML (2.0-4.4) 03/10/24 00:40 Urine Color Yellow (Yellow) 03/10/24 00:42 Urine Appearance Clear (CLEAR) 03/10/24 00:42 Urine pH 6.0 (5-7) 03/10/24 00:42 Ur Specific [place] 1.002 (1.005-1.030) L 03/10/24 00:42 Urine Protein Negative (Negative) 03/10/24 00:42 Urine Glucose (UA) Negative (Normal) 03/10/24 00:42 Urine Ketones Negative (Negative) 03/10/24 00:42 Urine Blood Negative (Negative) 03/10/24 00:42 Urine Nitrate Negative (Negative) 03/10/24 00:42 Urine Bilirubin Negative (Negative) 03/10/24 00:42 Urine Urobilinogen 0.2 mg/dL (Negative) 03/10/24 00:42 Ur Leukocyte Esterase Negative (Negative) 03/10/24 00:42 Urine RBC 0-2 /hpf (0-2) 03/10/24 00:42 Urine WBC 0-5 /hpf (0-5) 03/10/24 00:42 Ur Squamous Epith Cells 0-5 /hpf (0-5) 03/10/24 00:42 Amorphous Sediment Not Reportable 03/10/24 00:42 Urine Bacteria None seen /hpf (NONE) 03/10/24 00:42 Hyaline Casts 0-4 /lpf H 03/10/24 00:42 Urine Opiates Screen Negative ng/mL (Negative) 03/10/24 00:42 Ur Barbiturates Screen Negative ng/mL (Negative) 03/10/24 00:42 Ur Phencyclidine Scrn Negative ng/mL (Negative) 03/10/24 00:42 Ur Amphetamines Screen Negative ng/mL (Negative) 03/10/24 00:42 U Benzodiazepines Scrn Negative ng/mL (Negative) 03/10/24 00:42 Urine Cocaine Screen Negative ng/mL (Negative) 03/10/24 00:42 U Marijuana (THC) Screen Negative ng/mL (Negative) 03/10/24 00:42 Ethyl Alcohol < 10 mg/dL (0-10) 03/10/24 00:40 Vitals Last Vital Signs Temp 97.8 F 03/11/24 07:45 Pulse 61 03/11/24 07:45 Resp 18 03/11/24 07:45 BP 131/85 03/11/24 07:45 Pulse Ox 96 03/11/24 07:45 O2 Del Method Room Air 03/11/24 07:45 Discharge Plan Discharge Patient Disposition: Home Condition: Stable Prescriptions: New aspirin 81 mg Tablet,Delayed Release (Dr/Ec) 81 mg PO DAILY Qty: 90 0RF atorvastatin 40 mg Tablet 40 mg PO BEDTIME Qty: 90 0RF amlodipine 10 mg Tablet 10 mg PO Q24H Qty: 90 0RF No Action No Known Home Medications Discharge Orders: Discharge Order (Routine); Ordered 03/11/24 Ordered By: Tom Nuñez Referrals: Primary care, provider [Other] - 4-7 days (Hypertension, TIA) NEUROSCIENCE PROVIDERS [Provider Group] - 1 week (TIA We have notified your physician's clinic of the need for a follow-up appointment to be scheduled. If you have not heard from them within the next 2 business days, please call them directly. ) Discharge Diet: Cardiac Patient Instructions: Aspirin (By mouth), Amlodipine (By mouth), Atorvastatin (By mouth), Transient Ischemic Attack (GEN), Hypertension (GEN), Prevent Cardiovascular Disease (GEN), Heart Healthy Diet (GEN) Activity Restrictions/Additional Instructions: Please continue to monitor your blood pressures 3 times daily, save or write down values to bring to your appointment with your primary provider to help optimize control of blood pressure. Target blood pressure 120/80. Continue amlodipine, in case your blood pressure is staying above 130/90 you will need additional therapy, possibly addition of another medication. Otherwise if your blood pressure is above 150/90 during the day despite taking her medication in the morning, take an additional dose of amlodipine at that time. If your blood pressure is above 190 top number over 100 bottom number despite taking her medication or blood pressures rising or you have any other symptoms like chest discomfort, shortness of breath, or any symptoms as per discussion any numbness, weakness, trouble seeing, speaking, facial droop or any other concerning symptoms, seek medical attention immediately. Seek medical attention in case of any worsening or new concerning symptoms. Continue aspirin, cholesterol medication, follow-up with your primary provider and neurology after suspected transient ischemic attack. New are at risk of recurrent transient ischemic attack or stroke. Continue to optimize cardiovascular risk factors including blood pressure as above. Discuss with neurology recommendation for any further assessments, possibility of hemiplegic migraine. Discharge Attestations Time Spent in Discharge Care*: greater than 30 min Quality Metrics Clinical Quality Measures [ No reported AMI, CVA or VTE this stay] Coding Level of Care Code Acute Code for [facility] Fwd Diagnoses Transient cerebral ischemia G45.9
--- NOTE | 2024-03-11 12:14 | PC.NURSE ---
per case management notes patient is setting up pcp in [facility] home and does not want assistance with making pcp appointment. msg sent for neuroscience appointment.
[2024-03-11 12:31] VITALS: BP 142/85; PULSE 65; RESP 18; TEMP 36.6; O2SAT 96
[2024-03-11 13:25] VITALS: BP 142/85; PULSE 65; RESP 18; TEMP 36.6; O2SAT 96
== END 2024-03-11 13:15 | disposition home or self-care (01) ==
LOC: ER 04:53 → MEDSURG 06:06
PROVIDERS: Student in an Organized Health Care Education/Training Program; Admitting Provider Family Medicine; Emergency Provider Emergency Medicine; Visit Provider Internal Medicine
DX: G45.9 Transient cerebral ischemic attack, unspecified (principal); R29.701 NIHSS score 1
CPT/HCPCS: 36415; 70496; 70498; 80053; 80061; 80306; 80307; 81003; 81015; 82607; 82746; 83036; 83540; 83550; 83735; 83880; 84439; 84443; 84481; 84484; 85025; 85610; 85730; 93005; 94664; 96361; 96372; 96374; 96375; 97161; 99285; C8924; G0378; J1650; J2470; J3490; J7030

== ENCOUNTER 2025-03-27 14:51 | Emergency (ER) | payer BC, SELFPAY ==
--- NOTE | 2025-03-27 14:57 | XR_ITS ---
WS: [id number] Exam: XR chest 1V portable [id number] Date/Time of Exam: 03/27/2025 2:57 PM Reason For Exam: dyspnea/cough No priors. Lungs are fully expanded and clear. Normal cardiomediastinal silhouette. Unremarkable bony structures. XR/XR chest 1V portable [id number] IMPRESSION: 1. Negative chest.
[2025-03-27 14:58] VITALS: BP 147/100; PULSE 87; RESP 18; O2SAT 98
--- NOTE | 2025-03-27 15:05 | CTR_ITS ---
PROCEDURE INFORMATION: Exam: CT Head Without Contrast Exam date and time: 03/27/2025 3:05 PM Age: 44 years old Clinical indication: Stroke-like symptoms; Headache; Additional info: Symptoms of acute stroke TECHNIQUE: Imaging protocol: Computed tomography of the head without contrast. Radiation optimization: All CT scans at this facility use at least one of these dose optimization techniques: automated exposure control; mA and/or kV adjustment per patient size (includes targeted exams where dose is matched to clinical indication); or iterative reconstruction. Other technique: STROKE PROTOCOL was implemented. COMPARISON: CT angio headneck* [id number] 03/10/2024 12:51 AM RADIATION DOSE METRICS: Total DLP (mGy-cm): 1190.99 FINDINGS: Brain: No evidence of intra-axial or extra-axial hemorrhage. No mass effect or midline shift. Rao-white differentiation is maintained. Basilar cisterns are patent. Cerebral ventricles: No hydrocephalus. Paranasal sinuses: The visualized paranasal sinuses are well aerated. Mastoid air cells: The visualized mastoids and middle ears are clear. Bones: Calvarium is intact. No evidence of acute fracture. Soft tissues: No gross soft tissue abnormality. CT/CT head thrombolytic [id number] IMPRESSION: 1. No acute intracranial abnormality. ASSESSMENT: ASPECTS ([place] Stroke Program Early CT Score) is 10.
--- NOTE | 2025-03-27 15:23 | W.ED.NEUROSD ---
HPI - Neuro Symptoms/Deficit General: Chief Complaint: Neuro Symptoms/Deficit Stated Complaint: body went numb Time Seen by Provider: 03/27/25 14:56 History of Present Illness: 44-year-old male presents to the emergency room with complaints of sudden onset of what he describes as complete body numbness that lasted approximately 15 seconds. Resolved spontaneously. His blood pressures been running high lately he was in the process of taking his blood pressure when this happened. He reports that he had a TIA a year ago and he takes a baby aspirin daily he has no further symptoms at this time. Initial NIH evaluation is 0 Associated symptoms: Deny chest pain Related Data Home Medications ?Medication ?Instructions ?Recorded ?Confirmed lisinopril 20 mg tablet 20 mg PO DAILY 10/24/24 03/27/25 amlodipine 5 mg tablet 5 mg PO DAILY 03/27/25 03/27/25 Previous Rx's ?Medication ?Instructions ?Recorded amlodipine 10 mg tablet 10 mg PO Q24H #90 tabs 03/11/24 aspirin 81 mg tablet,delayed 81 mg PO DAILY #90 tabs 03/11/24 release atorvastatin 40 mg tablet 40 mg PO BEDTIME #90 tabs 03/11/24 Allergies Allergy/AdvReac Type Severity Reaction Status Date / Time No Known Allergies Allergy Verified 10/24/24 12:33 Review of Systems Const: Denies: fever(s) or chills Card: Denies: chest pain Resp: Denies: dyspnea GI: Denies: abdominal pain : Denies: dysuria, urinary frequency or urinary urgency Musc: Denies: neck pain or back pain Skin/Breast: Denies: rash PFSH ED PFSH: Medical History (Updated 03/27/25 @ 16:51 by Rodriguez Gutierrez DO) No pertinent past medical history Surgical History (Updated 03/10/24 @ 03:17 by Mich Del Valle MD) No pertinent past surgical history Family History Mother Hypertension Social History (Updated 03/10/24 @ 03:18 by Mich Del Valle MD) Smoking and tobacco/nicotine status: current every day tobacco/nicotine user (Chews 3cans per week) Alcohol intake: never Substance/Drug Use: never NIH stroke score NIHSS: Level Of Consciousness - 1a: 0 Level Of Consciousness Questions - 1b: Both Correct Level Of Consciousness Commands - 1c: Both Correct Best Gaze - 2: Normal Visual Kendall - 3: No Visual Loss Facial Palsy - 4: Normal Motor Arm Right - 5: No Drift Motor Arm Left - 5: No Drift Motor Leg Right - 6: No Drift Motor Leg Left - 6: No Drift Limb Ataxia - 7: Absent Sensory - 8: Normal Best Language - 9: No Aphasia Dysarthia - 10: Normal Extinction And Inattention - 11: 0 Score: Total Score: 0 Physical Exam Const: COMMON NORMALS: no acute distress GENERAL APPEARANCE: cooperative and comfortable ORIENTATION/CONSCIOUSNESS: Yes awake, Yes oriented to person, Yes oriented to place and Yes oriented to time HENMT: COMMON NORMALS: normocephalic, atraumatic and hearing grossly normal bilaterally HEAD & SCALP: normocephalic and atraumatic Resp: COMMON NORMALS: normal respiratory effort, No retractions, No use of accessory muscles and clear to auscultation bilaterally AUSCULTATION: clear to auscultation bilaterally Cardio: COMMON NORMALS: regular rate, regular rhythm and No murmurs present (Cardio) RATE: regular rate RHYTHM: regular rhythm GI: COMMON NORMALS: Soft to palpation and No hepatosplenomegaly present AUSCULTATION: Yes normoactive bowel sounds PALPATION: Yes Soft to palpation, No Tenderness to palpation present (GI), No Guarding due to palpation present (GI) and Yes No hepatosplenomegaly present Extremity: COMMON NORMALS: normal to inspection, capillary refill normal, no clubbing, cyanosis or edema, no calf tenderness and no pedal edema Neuro: SENSORIUM/ORIENTATION: Yes oriented to person, Yes oriented to place and Yes oriented to time Skin: COMMON NORMALS: no rashes or lesions noted GENERAL SKIN EXAM: no rashes or lesions noted Course Vital Signs: Vital signs: Vital Signs Pulse Rate 87 03/27/25 14:58 Respiratory Rate 18 03/27/25 14:58 Blood Pressure 147/100 03/27/25 14:58 Pulse Oximetry 98 03/27/25 14:58 Oxygen Delivery Me thod Room Air 03/27/25 14:58 MDM - Neuro Symptoms/Deficit Medical Decision Making Patient reported numbness tingling that was bilateral lasted for 15 seconds resolved he has no neurologic findings this time and CT does not show any acute changes. Continue current medications follow-up with his primary care doctor no evidence of acute TIA or CVA at this time. Medical Records I reviewed the patient's medical records. Lab Data I reviewed the patient's lab results. 03/27/25 15:20 03/27/25 15:20 Radiology Impressions Chest X-Ray 03/27/25 14:57 IMPRESSION: 1. Negative chest. Head CT 03/27/25 15:05 IMPRESSION: 1. No acute intracranial abnormality. ASSESSMENT: ASPECTS ([place] Stroke Program Early CT Score) is 10. ADDENDUM: 03/27/25 8979 The findings were verbally communicated by telephone with Dr. Gutierrez at 3:30 PM CDT on 03/27/2025. Laboratory Results WBC 5.23 10^3/uL (3.29-11.43) 03/27/25 15:20 RBC 5.30 10^6/uL (3.85-5.65) 03/27/25 15:20 Hgb 15.70 g/dL (11.27-16.99) 03/27/25 15:20 Hct 45.8 % (37-53) 03/27/25 15:20 MCV 86.4 fl (82-101) 03/27/25 15:20 MCH 29.6 pg (27-33) 03/27/25 15:20 MCHC 34.3 g/dL (30-55) 03/27/25 15:20 RDW 12.1 % (12.1-15.1) 03/27/25 15:20 Plt Count 231 10^3/cmm (157-399) 03/27/25 15:20 MPV 10.6 fL (7.4-10.4) H 03/27/25 15:20 Neut % (Auto) 70.5 % 03/27/25 15:20 Lymph % (Auto) 18.2 % 03/27/25 15:20 [place] % (Auto) 9.0 % 03/27/25 15:20 Eos % (Auto) 1.3 % 03/27/25 15:20 Baso % (Auto) 0.6 % 03/27/25 15:20 Neut # (Auto) 3.69 10^3/uL (1.8-7.7) 03/27/25 15:20 Lymph # (Auto) 1.0 10^3/uL (0.8-4.8) 03/27/25 15:20 [place] # (Auto) 0.5 10^3/uL (0.2-0.9) 03/27/25 15:20 Eos # (Auto) 0.1 10^3/uL (0.0-0.8) 03/27/25 15:20 Baso # (Auto) 0.0 10^3/uL (0.0-0.1) 03/27/25 15:20 Nucleated RBC % (auto) 0 % 03/27/25 15:20 Nucleated RBCs # 0.0 /100WBC 03/27/25 15:20 PT 13.20 SECONDS (12.1-14.9) 03/27/25 15:20 INR 0.94 (0.8-1.2) 03/27/25 15:20 APTT 30.3 SECONDS (23.9-36.7) 03/27/25 15:20 Sodium 140 mmol/L (136-145) 03/27/25 15:20 Potassium 3.8 mmol/L (3.5-5.1) 03/27/25 15:20 Chloride 102 mmol/L (98-107) 03/27/25 15:20 Carbon Dioxide 27 mmol/L (22-29) 03/27/25 15:20 Anion Gap 14.8 (5-19) 03/27/25 15:20 BUN 18 mg/dL (6-20) 03/27/25 15:20 Creatinine 0.8 mg/dL (0.7-1.2) 03/27/25 15:20 GFR Calculation 105.5 mL/min (90-130) 03/27/25 15:20 Glucose 101 mg/dL (65-115) 03/27/25 15:20 Calculated Osmolality 292 mOsm/kg (285-295) 03/27/25 15:20 Calcium 9.4 mg/dL (8.5-10.5) 03/27/25 15:20 Total Bilirubin 0.4 mg/dL (0.15-1.2) 03/27/25 15:20 AST 21 U/L (0-40) 03/27/25 15:20 ALT 36 U/L (0-41) 03/27/25 15:20 Alkaline Phosphatase 60 U/L (40-130) 03/27/25 15:20 Total Protein 7.7 g/dL (6.6-8.7) 03/27/25 15:20 Albumin 4.7 g/dL (3.5-5.2) 03/27/25 15:20 Globulin 3.0 g/dL (1.3-4.6) 03/27/25 15:20 Urine Color Yellow (Yellow) 03/27/25 15:59 Urine Appearance Clear (CLEAR) 03/27/25 15:59 Urine pH 7.0 (5-7) 03/27/25 15:59 Ur Specific [place] 1.004 (1.005-1.030) L 03/27/25 15:59 Urine Protein Negative (Negative) 03/27/25 15:59 Urine Glucose (UA) Negative (Normal) 03/27/25 15:59 Urine Ketones Negative (Negative) 03/27/25 15:59 Urine Blood Negative (Negative) 03/27/25 15:59 Urine Nitrate Negative (Negative) 03/27/25 15:59 Urine Bilirubin Negative (Negative) 03/27/25 15:59 Urine Urobilinogen 0.2 mg/dL (Negative) 03/27/25 15:59 Ur Leukocyte Esterase Negative (Negative) 03/27/25 15:59 Urine RBC 0-2 /hpf (0-2) 03/27/25 15:59 Urine WBC 0-5 /hpf (0-5) 03/27/25 15:59 Ur Squamous Epith Cells 0-5 /hpf (0-5) 03/27/25 15:59 Amorphous Sediment Not Reportable 03/27/25 15:59 Urine Bacteria None seen /hpf (NONE) 03/27/25 15:59 Hyaline Casts 0-4 /lpf H 03/27/25 15:59 Urine Opiates Screen Negative ng/mL (Negative) 03/27/25 15:59 Ur Barbiturates Screen Negative ng/mL (Negative) 03/27/25 15:59 Ur Phencyclidine Scrn Negative ng/mL (Negative) 03/27/25 15:59 Ur Amphetamines Screen Negative ng/mL (Negative) 03/27/25 15:59 U Benzodiazepines Scrn Negative ng/mL (Negative) 03/27/25 15:59 Urine Cocaine Screen Negative ng/mL (Negative) 03/27/25 15:59 U Marijuana (THC) Screen Negative ng/mL (Negative) 03/27/25 15:59 All radiology interpretation(s) finalized by discharge Discharge Plan Discharge Patient Disposition: Home Clinical Impression: Numbness and tingling, HTN (hypertension) Condition: Stable Prescriptions: No Action lisinopril 20 mg tablet 20 mg PO DAILY aspirin 81 mg Tablet,Delayed Release (Dr/Ec) 81 mg PO DAILY Qty: 90 0RF amlodipine 10 mg Tablet 10 mg PO Q24H Qty: 90 0RF atorvastatin 40 mg Tablet 40 mg PO BEDTIME Qty: 90 0RF amlodipine 5 mg tablet 5 mg PO DAILY Discharge Orders: Discharge ED (Routine); Ordered 03/27/25 Ordered By: Rodriguez Gutierrez Referrals: Mark Helton MD [Primary Care Provider, Family Practice] Discharge Diet: Usual diet Discharge Activity: Increase activity as tolerated Patient Instructions: Opioid Safety, Pain Management, Patient Portal & [place] Instructions Activity Restrictions/Additional Instructions: Thank you for choosing [facility] for your healthcare needs today. It is very important that you follow up as instructed or that you return to the Emergency Department should you have concerns or if your condition changes or worsens in any way. Emergency department visits are focused on emergent conditions, in some cases you may require further evaluation on an outpatient basis. You were seen in the emergency room with complaints of numbness and tingling. There is no evidence of acute stroke or TIA at this time. The transient numbness and tingling you had across her entire body could be caused by a number of things but there is no emergent condition found at this time. Continue current medications including the adjustment your doctor made for your blood pressure recently. Follow-up with your primary care doctor as needed. (Please note that included in your discharge packet is information concerning opioid safety and pain management. This information is given to all patients were discharged from the ER regardless of their discharge diagnosis or the medicines they usually take or are prescribed.) Print Language: Burkinan Coding Level of Care Code ED Custom Grinder for Salina Quiles
[2025-03-27 15:25] LABS: Hematocrit 45.8 % (37-53); Hemoglobin 15.70 g/dL (11.27-16.99); Mean Corpuscular HGB Conc 34.3 g/dL (30-55); Mean Corpuscular Hemoglobin 29.6 pg (27-33); Mean Corpuscular Volume 86.4 fl (82-101); Nucleated Red Blood Cells % 0 %; Platelet Count 231 10^3/cmm (157-399); Red Blood Count 5.30 10^6/uL (3.85-5.65); White Blood Count 5.23 10^3/uL (3.29-11.43)
[2025-03-27 15:41] LABS: INR 0.94 (0.8-1.2); Prothrombin Time 13.20 SECONDS (12.1-14.9)
[2025-03-27 15:42] LABS: Partial Thromboplastin Time 30.3 SECONDS (23.9-36.7)
[2025-03-27 15:45] LABS: Alanine Aminotransferase 36 U/L (0-41); Albumin Level 4.7 g/dL (3.5-5.2); Alkaline Phosphatase 60 U/L (40-130); Anion Gap 14.8 (5-19); Aspartate Amino Transferase 21 U/L (0-40); Blood Urea Nitrogen 18 mg/dL (6-20); Calcium 9.4 mg/dL (8.5-10.5); Carbon Dioxide 27 mmol/L (22-29); Chloride 102 mmol/L (98-107); Globulin 3.0 g/dL (1.3-4.6); Glucose 101 mg/dL (65-115); Osmolality Calculated 292 mOsm/kg (285-295); Potassium 3.8 mmol/L (3.5-5.1); Sodium 140 mmol/L (136-145); Total Protein 7.7 g/dL (6.6-8.7)
[2025-03-27 16:26] LABS: Glucose Urine UA Negative (Normal); Nitrate Urine Negative (Negative); Specific Gravity, Urine 1.004 (1.005-1.030)
--- OUTSIDE RECORDS SUMMARY | 2025-03-27 16:27 | XMS_ITS | Clinical Summary ---
Author Organization [facility] Address [address] [place] [address] Phone Care Team Providers Care Polisher And Buffer Name Role Phone Unavailable Primary Care Provider Unavailabl e Allergies No known active allergies Medications hydroCHLOROthiaz bruce 12.5 mg tablet Take 12.5 mg by mouth daily. Active amLODIPine (NORVASC) 10 mg tablet Take 10 mg by mouth daily. Active atorvastatin (LIPITOR) 10 mg tablet Take 10 mg by mouth daily. Active aspirin (MARTI CHEWABLE) 81 mg Tablet, Chewable Take 81 mg by mouth daily. Active Social History Tobacco Use Types Packs/Day Years Used Date Smoking Tobacco: Never Tobacco Cessation:Counseling Given: Not Answered Alcohol Use Standard Drinks/Week Comments Never 0 (1 standard drink = 0.6 oz pur e alcohol) Feeling Safe Answer Date Recorded Are you in a relationship wi th someone who hurts you emotionally and/or physically? No 09/23/2024 Sex and Gender Information Value Date Recorded Sex Assigned at Not on file Legal Sex Male 5:12 PM CDT Gender Identity Not on file Sexual Orientation Not on file Last Filed Vital Signs Vital Sign Reading Time Taken Comments Blood Pressure 119/88 09/23/2024 11:45 PM CDT Pulse 64 09/23/2024 11:55 PM CDT Temperature 36.9 C (98.5 F) 09/23/2024 5:20 PM CDT Respiratory Rate 16 09/23/2024 10:44 PM CDT Oxygen Saturation 99% 09/23/2024 11:55 PM CDT Inhaled Oxygen Concentration - - Weight 90.7 kg (200 lb) 09/23/2024 5:20 PM CDT Height 193 cm (6' 4 ) 09/23/2024 5:20 PM CDT Body Mass Index 24.34 09/23/2024 5:20 PM CDT Plan of Treatment Health Maintenance Due Date Last Done Comments DTAP/TDAP/TD VACCINES (1 - Tdap) 2000 HEPATITIS B VACCINES (1 of 3 - 19+ 3-dose series) 03/04 HPV VACCINES (1 - 3-dose SCDM series) 2008 INFLUENZA VACCINE (#1) 2025 Insurance [employer]/TRUE BLUE PPO
[2025-03-27 16:32] LABS: Add Urine Microscopic? YES; PCP Screen Urine Negative (Negative)
== END 2025-03-27 17:04 | disposition home or self-care (01) ==
PROVIDERS: Emergency Provider Family Medicine; PCP Family Medicine
DX: R20.0 Anesthesia of skin (principal); I10 Essential (primary) hypertension; Z79.82 Long term (current) use of aspirin; F17.220 Nicotine dependence, chewing tobacco, uncomplicated
CPT/HCPCS: 36415; 70450; 71045; 80053; 80306; 81001; 85025; 85610; 85730; 99285

== ENCOUNTER → 2025-04-14 15:04 | Outpatient (BNVA) | payer BC, SELFPAY | PROVIDERS: PCP Family Medicine; Visit Provider Emergency Medicine | DX: R06.02 Shortness of breath (principal) | CPT/HCPCS: 71046 ==